=== PATIENT | male | born 1965 | race African-American/Black ===

== ENCOUNTER 2020-09-30 12:31 | Emergency (ER) | payer MEDICAID ==
[~2020-09-30] VITALS: Ht 177.8 cm; Wt 81.6 kg
[2020-09-30 13:17] VITALS: BP 128/80
== END 2020-09-30 14:40 | disposition home or self-care (01) ==
LOC: ER 12:32
DX: M11.261 Other chondrocalcinosis, right knee (principal); M25.461 Effusion, right knee
CPT/HCPCS: 73562

== ENCOUNTER 2022-10-18 18:12 | Emergency (ER) | payer MEDICAID, OTHER ==
[~2022-10-18] VITALS: Ht 177.8 cm; Wt 88.5 kg
[2022-10-18 18:31] VITALS: BP 154/81
== END 2022-10-18 21:50 | disposition left against medical advice (07) ==
LOC: ER 18:12
DX: M25.531 Pain in right wrist (principal); R22.31 Localized swelling, mass and lump, right upper limb; Z53.21 Procedure and treatment not carried out due to patient leaving prior to being seen by health care provider
CPT/HCPCS: 73110